=== PATIENT | female | born 2000 | race Caucasian/White ===

== ENCOUNTER 2022-02-25 13:08 | Outpatient (CLI) | payer BC, SELFPAY ==
--- NOTE | ~2022-02-25 | US_ITS ---
EXAMINATION: US pelvic complete w TV DATE: 02/25/2022 14:22 INDICATION: Amenorrhea. Comparison:No prior studies for comparison. TECHNIQUE: Multiple transabdominal and endovaginal sonographic images of the pelvis performed. FINDINGS: The uterus measures 6.7 x 5 x 3.5 cm. The endometrial complex measures 12 mm. The right ovary measures 3.3 x 2.1 x 2.5 cm and the left ovary measures 2.2 x 1.8 x 2.4 cm. There ar e small follicles in each ovary. Normal doppler signal in both ovaries. There is no free fluid in the pelvis. There are no abnormal masses seen on either side. IMPRESSION: 1. Mild endometrial thickening measuring 12 mm. Reviewed, dictated and finalized at location A.
== END 2022-02-25 13:09 | disposition home or self-care (01) ==
PROVIDERS: PCP Family Medicine; Visit Provider Student in an Organized Health Care Education/Training Program
DX: N91.2 Amenorrhea, unspecified (principal); R93.89 Abnormal findings on diagnostic imaging of other specified body structures
CPT/HCPCS: 76830; 76856

== ENCOUNTER 2025-05-09 16:39 | Emergency (ER) | payer SELFPAY ==
--- OUTSIDE RECORDS SUMMARY | 2025-05-09 16:56 | XMS_ITS | Clinical Summary ---
Author Organization [facility] Medical Office Building [address] Address [address] [place] [address] Care Team Providers Care Wool Shearer Name Role Phone Vangie Rai MD Unavailable [phone] Nicolás Tobias MD Unavailable [phone] Shade Patel MD Unavailable [phone] Yinka Walters MD Primary Care Provider [phone] Allergies No known active allergies Medications norethindrone-e.es tradioL-iron 1 mg-20 mcg (24)/75 mg (4) capsule Take 1 tablet by mouth daily Active ondansetron ODT (ZOFRAN-ODT) 4 mg disintegrating tabletIndications: Nausea and Vomiting Take 1 tablet (4 mg total) by mouth every 8 (eight) hours as needed for nausea or vomiting 30 tablet 06/03/20 19 Active Additional Information Patient not taking.Reported on 11/11/2024 acetaminophen (TYLENOL) 325 mg tabletIndications: Pain Take 2 tablets (650 mg total) by mouth every 4 (four) hours as needed for pain 12/29/19 21 Active Additional Information Patient not taking.Reported on 11/11/2024 metoclopramide (REGLAN) 10 mg tablet Take 1 tablet (10 mg total) by mouth 4 (four) times a day as needed (nausea) 30 tablet 3 12/29/19 21 Active Additional Information Patient not taking.Reported on 05/05/2023 escitalopram (LEXAPRO) 10 mg tablet Take 1 tablet (10 mg total) by mouth daily 12/31/19 21 Active levonorgestrel & ethinyl estradiol (AMETHIA) 0.15 mg-30 mcg tablets,dose pack,3 month Take by mouth 03/12/20 20 Active Vyvanse 30 mg capsule Take 1 capsule (30 mg total) by mouth daily Active Active Problems Problem Noted Date Diagnosed Date Intractable nausea and vomiting 12/27/2020 Assessment & Plan (12/28/2020 1:43 PM CDT): Likely manifestation of patient's known cyclic vomiting syndrome. Continues to use daily MJ. Also, alcohol seems to be trigger and drank heavily 3 days prior. Work-up unremarkable in ED, CT and labs basically normal except for AGMA, which has resolved after IVF. Recommended MJ cessation, reduce alcohol use. 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 N/V improved today, d/c home with reglan Assessment & Plan (12/27/2020 3:21 PM CDT): Likely manifestation of patient's known cyclic vomiting syndrome. Continues to use daily MJ. Also, alcohol seems to be trigger and drank heavily 3 days prior. Work-up unremarkable in ED, CT and labs basically normal except for AGMA. Recommended MJ cessation, reduce alcohol use. 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 Anxiety 12/27/2020 Assessment & Plan (12/28/2020 1:43 PM CDT): Advise f/u with PCP to discuss alternative anxiety treatment besides MJ. Perhaps something like a TCA or SNRI may have beneficial effects on her cyclic vomiting as well. Assessment & Plan (12/27/2020 3:22 PM CDT): Advise f/u with PCP to discuss alternative anxiety treatment besides MJ. Perhaps something like a TCA or SNRI may have beneficial effects on her cyclic vomiting as well. Nausea and vomiting 06/01/2019 Assessment & Plan (06/01/2019 8:53 PM CDT): Patient's 4th episode. In the past it has been attributed to marijuana use daily however patient states she has stopped using daily since she returned from [facility] last month. She states she has only used a few times. Patient was also intoxicated and had over half a bottle of vodka last night. Currently feeling better after receiving Compazine. Continue with supportive care. P.r.n. Antiemetics. IV fluids. Mom is concerned that it may be related to her menstrual period as patient was on her menstrual period for each episode. Mom and patient advised that if patient symptoms are attributed to her menstrual period that she can take her OCP continually without taking sugar pills so she no longer has a menstrual period and patient was advised to discuss this with her physician that prescribes her the OCPs. Cannabis use, unspecified wi th other cannabis-induced disorder 06/01/2019 Assessment & Plan (12/28/2020 1:43 PM CDT): Uses daily MJ to self-medicate for anxiety. Advised cessation. Assessment & Plan (12/27/2020 3:21 PM CDT): Uses daily MJ to self-medicate for anxiety. Advised cessation. Assessment & Plan (06/01/2019 8:49 PM CDT): Patient states she no longer uses daily and has used only few times since she returned from [facility] last month. Patient advised to avoid completely to see if her symptoms resolve completely. She denies vaping. Alcoholic intoxication with complication 019 Assessment & Plan (06/01/2019 8:53 PM CDT): Patient states she drinks a few times a month. Last evening she had over half a bottle of vodka. Lactic acidosis 06/01/2019 Assessment & Plan (06/01/2019 8:54 PM CDT): Likely due to nausea and vomiting. Lactate is persistently elevated. Patient has received almost 3 L of IV fluids and urinated. Will repeat level. 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 Alcohol abuse Immunizations Immunization Administration Dates Next Due DTaP 04/22/2004,03/29/2000,04/08/1999 DTaP / HiB 02/02/1999,1998 HPV, Unspecified 05/06/2010,06/10/2009, 8 Hep B, Adolescent or Pediatric 07/29/1999,1998,1998 HiB 12/28/1999,04/08/1999 IPV 04/22/2004, 0,02/02/1999,11/25 Influenza LAIV (Nasal) 05/04/2012,05/06/2011,03/2010 Influenza, Quadrivalent, Spl it, Preservative Free, Intramuscular 05/06/2020,06/03/2019 MMR 04/22/2004,12/28/1999 Meningococcal Conjugate (Menveo) 05/02/2015 Meningococcal Polysaccharide (Menomune) 05/06/2010 PPD TEST, UNSPECIFIED 05/13/2020,05/06/2020 Tdap 05/06/2020,06/10/2009 Varicella 05/23/2008,10/28/1999 Medical History Medical History Date Comments Hyperemesis Cyclic vomiting syndrome Family History Medical History Relation Name Comments Ulcerative colitis Mother Relation Name Status Comments Mother Social History Tobacco Use Types Packs/Day Years Used Date Smoking Tobacco: Never Smokeless Tobacco: Never Alcohol Use Standard Drinks/Week Comments Yes 0 (1 standard drink = 0.6 oz pur e alcohol) Occasionally Comments No Sex and Gender Information Value Date Recorded Sex Assigned at Not on file Legal Sex Female 11:11 AM OFFICE NURSE PRACTITIONER Gender Identity Not on file Sexual Orientation Not on file Obstetrics History Last Filed Vital Signs Vital Sign Reading Time Taken Comments Blood Pressure 108/68 11/11/2024 11:25 AM CDT Pulse 115 11/11/2024 11:25 AM CDT Temperature 36.8 C (98.2 F) 11/11/2024 11:25 AM CDT Respiratory Rate 20 04/19/2024 6:32 PM CDT Oxygen Saturation 98% 11/11/2024 11:25 AM CDT Inhaled Oxygen Concentration - - Weight 86.2 kg (190 lb) 11/11/2024 11:25 AM CDT Height 162.6 cm (5' 4) 11/11/2024 11:25 AM CDT Body Mass Index 32.61 11/11/2024 11:25 AM CDT Plan of Treatment Health Maintenance Due Date Last Done Comments Cervical Cancer Screening 1998 Depression Screening 1998 Hepatitis C Screening 1998 Regular Well Visit/Exam 18-64 2016 Influenza Vaccine (#1) 2025 , 06/03/2019, 05/04/2012, Additional history exists DTaP/Tdap/Td Vaccine (8 - Td or Tdap) 05/06/2030 05/06/2020, 06/10/2009, 04/22/2004, Additional history exists Hepatitis B Screening Completed 07/29/1999 , 1998, 1998 Varicella Vaccines Completed 05/23/2008, 10/28/1999 HPV Vaccines Completed 05/06/2010, 05/29, 05/23/2008 Pneumococcal vaccine <65 Aged Out No longer eligible based on patient's age to complete this topic Insurance [facility] ACCESS CHOICE Advance Directives For more information, please contact: [phone] * Full Code (Latest Code Status on File) Date Activated Date Inactivated Comments 12/27/2020 3:26 PM 12/28/2020 7:12 PM * Full Code Date Activated Date Inactivated Comments 06/01/2019 4:35 PM 06/03/2019 9:50 PM Care Teams Wool Shearer Relationship Specialty Start Date End Date Yinka Walters MD [address] [address] PCP - General 12/27/20 Vangie Rai MD Consulting Physician Gastroenterology 06/03/19 Nicolás Tobias MD Consulting Physician Urology 06/03/19 Shade Patel MD Consulting Physician Obstetrics and Gynecology 06/03/19
--- OUTSIDE RECORDS SUMMARY | 2025-05-09 16:56 | XMS_ITS | Patient Health Record ---
Author Organization [facility] Address [address] [facility] [address] [place] [address] Care Team Providers Care [employer] Superintendent Name Role Phone Alfonzo Angulo Primary Care Provider Unavailabl e Reason For Referral No Information Medications Medication SIG (Take, Route, Fr equency, Duration) Notes Start Date End Date Status Ondansetron HCl 4 MG 1 tablet Orally Onc e a day for 30 day(s) 10/10/2019 Active BCP Active Social History Tobacco Use: Social History Observation Description Date Details (start date - stop date) Never Smoker NA - NA Tobacco Use/Smoking Question Answer Notes Are you a nonsmoker Problems Problem Type SNOMED Code ICD Code Onset Dates Problem Status W/U Status Risk Notes Problem [id number] Cannabinoid hyperemesis syndrome (F12.988) Active confirmed Plan Of Treatment No Information Insurance Providers Payer Name Payer Address Payer Phone Subscriber Number Group Number Insured Name Patient Relationship to Insured Coverage Start Date Coverage End Date Blue Access Choice PPO E2 [address] [place] [address] [id number] Norberto Lara Child - Insured has Financial Responsibility Medical (General) History Surgical History Surgery Date(Month/Year) Hospitalization History Reason Date(Month/Year) Cyclical vomiting x2
--- OUTSIDE RECORDS SUMMARY | 2025-05-09 16:56 | XMS_ITS | Encounter Summary ---
Author Organization [facility] Address [address] [place] [place] [address] Phone Care Team Providers Care Sand Filler Name Role Phone Yinka Walters MD Primary Care Provider [phone] Shade Patel MD Unavailable [phone] Reason for Visit * Reason Comments Medication Refill Encounter Details Date Type Department Care Team (Late st Contact Info) Description 06/06/2023 Refill [facility] - Family Medicine [facility] [address] [place] [address] Yinka Walters MD [address] [place] [address] Medication Refill Social History Tobacco Use Types Packs/Day Years Used Date Smoking Tobacco: Never Smokeless Tobacco: Never Alcohol Use Standard Drinks/Week Comments Not Currently 0 (1 standard drink = 0.6 oz pur e alcohol) PHQ-2 Answer Date Recorded Total Score - Questions 1-9 11 11/2020 Sexually Active Control Partners Comments Not Currently Comments No Sex and Gender Information Value Date Recorded Sex Assigned at Not on file Legal Sex Female 9:04 AM CDT Gender Identity Not on file Sexual Orientation Not on file documented as of this encounter Miscellaneous Notes * Telephone Encounter - Lillie Craig RN - 06/08/2023 7:11 AM CDT Signed Yesterday (06/07/2023): escitalopram (LEXAPRO) 10 MG Tablet Sig: Take 1 Tablet by mouth daily. Disp: 90 Tablet ? Refills: 1 Signed by: Yinka Walters MD * Telephone Encounter - Lillie Craig RN - 06/07/2023 9:23 AM CDT duplicate documented in this encounter Plan of Treatment Not on file documented as of this encounter Visit Diagnoses Not on filedocumented in this encounter Additional Health Concerns Assessment Noted Time PHQ-9 Depression Total Score: 11 021 11:00 AM CDT documented as of this encounter Care Teams Sand Filler Relationship Specialty Start Date End Date Yinka Walters MD PCP - General Family Medicine 06/21/19 05/01/25 Shade Patel MD Consulting Physician Obstetrics & Gynecology 01/03/23 documented as of this encounter
--- OUTSIDE RECORDS SUMMARY | 2025-05-09 16:56 | XMS_ITS | Clinical Summary ---
Author Organization [facility] Address [address] [place] [address] Phone Care Team Providers Care Stereotype Caster Name Role Phone Shade Patel MD Unavailable Allergies No known active allergies Medications escitalopram (LEXAPRO) 10 MG Tablet Take 1 Tablet by mouth daily. 30 Tablet 2 4 Active Lisdexamfetamine Dimesylate (Vyvanse) 30 MG CapsuleIndications :Attention deficit hyperactivity disorder (ADHD), combined type Take 1 Capsule by mouth daily. 30 Capsule 4 Active Active Problems Problem Noted Date Diagnosed Date Anxiety 12/27/2020 Overview (12/30/2020): Last Assessment & Plan: Advise f/u with PCP to discuss alternative anxiety treatment besides MJ. Perhaps something like a TCA or SNRI may have beneficial effects on her cyclic vomiting as well. Allergic rhinitis 09/21/2018 Overview (12/30/2020): Last Assessment & Plan: Blood testing for allergies - will call results Immunizations Immunization Administration Dates Next Due DTAP VACCINE 04/22/2004,03/29/2000,04/08/1999 DTAP/HIB COMBINED VACCINE 02/02/1999,1998 Hepatitis B Vaccine, Pediatric/adolescent 07/29/1999,1998,1998 Hib Vaccine,unspecified Formulation 12/28/1999,0 04/08/1999 Hpv, Unspecified Formulation 05/06/2010,06/10/20 09,05/23/2008 Inactivated Polio Vaccine 04/22/2004,08/1999,02/02/1999,11/25 Influenza Vaccine Nasal 05/04/2012,05/06/2011, Influenza Vaccine, Quadrivalent, PF 05/06/2020,1 MMR Vaccine 04/22/2004,12/28/1999 Meningococcal MCV4O 05/02/2015 Meningococcal Polysaccharide Vaccine (MPSV4) 05/06/2010 TB Skin Test 05/13/2020,05/06/2020 TDAP Vaccine 05/06/2020,06/10/2009 Varicella Vaccine Live 05/23/2008,10/28/1999 Family History Medical History Relation Name Comments Diabetes Father Cancer Maternal Grandmother Natalio Nadeem joshi and later on, tongue/throat cancer Crohn's Disease Mother Cielo Diabetes Mother Cielo Heart Attack Mother Cielo She has had 3 h eart attacks Heart Attack Paternal Grandfather Prasanna I think he has just had 1 heartattack, he had a 99% blockage in an artery Cancer Paternal Grandmother Nazanin Stage 1 breast cancer Congestive Heart Failure Paternal Grandmother Nazanin Great grandmother had congestive heart failure, her name was Grace Relation Name Status Comments Father Alive Maternal Grandmother Natalio Mother Cielo Alive Paternal Grandfather Prasanna Paternal Grandmother Nazanin Social History Tobacco Use Types Packs/Day Years Used Date Smoking Tobacco: Never Smokeless Tobacco: Never Tobacco Cessation:Counseling Given: Yes Alcohol Use Standard Drinks/Week Comments Not Currently 0 (1 standard drink = 0.6 oz pur e alcohol) [facility] Utilities Answer Date Recorded In the past 12 months has e OTC [employer] Group, gas, oil, or water company threatened to shut off services in your home? No 05/03/2024 Social Connection and Isolation Panel Answer Date Recorded In a typical week, how many times do you talk on the phone with family, friends, or neighbors? More than three times a week 05/03/2024 How often do you get togethe r with friends or relatives? Twice a week 05/03/2024 How often do you attend chur ch or restoration services? Never 05/03/2024 Do you belong to any clubs o r organizations such as christian groups, unions, fraternal or athletic groups, or school groups? No 05/03/2024 How often do you attend meet ings of the clubs or organizations you belong to? Never 05/03/2024 Are you , , di vorced, , never , or living with a partner? Living with partner 05/03/2024 AUDIT-C Answer Date Recorded Q1: How often do you have a drink containing alc ohol? 2-4 times a month 05/03/2024 Q2: How many drinks containi ng alcohol do you have on a typical day when you are drinking? 3 or 4 05/03/2024 Q3: How often do you have si x or more drinks on one occasion? Less than monthly 05/03/2024 Overall Financial Resource Strain (CARDIA) Answe r Date Recorded How hard is it for you to pa y for the very basics like food, housing, medical care, and heating? Hard 05/03/2024 PHQ-2 Answer Date Recorded Total Score - Questions 1-9 0 12/2023 [facility] - Occupational Stress Questionnaire Answer Date Recorded Do you feel stress - tense, restless, nervous, or anxious, or unable to sleep at night because your mind is troubled all the time - these days? To some extent 05/03/2024 Exercise Vital Sign Answer Date Recorde d On average, how many days pe r week do you engage in moderate to strenuous exercise (like a brisk walk)? 2 days 05/03/2024 On average, how many minutes do you engage in exercise at this level? 30 min 05/03/2024 Hunger Vital Sign Answer Date Recorded Within the past 12 months, y ou worried that your food would run out before you got the money to buy more. Sometimes true Within the past 12 months, t he food you bought just didn't last and you didn't have money to get more. Never true 12/2023 PRAPARE - Transportation Answer Date Re corded In the past 12 months, has l ack of transportation kept you from medical appointments or from getting medications? No 12/2023 In the past 12 months, has l ack of transportation kept you from meetings, work, or from getting things needed for daily living? No 05/03/2024 Housing Stability Vital Sign Answer Dequan e Recorded In the last 12 months, was t here a time when you were not able to pay the mortgage or rent on time? Yes 05/03/2024 In the past 12 months, how m any times have you moved where you were living? 0 05/03/2024 At any time in the past 12 m [facility], were you homeless or living in a custodial (including now)? No 05/03/2024 Sexually Active Control Partners Comments Yes Male We have been tr carlos to have a baby for almost 3 years Comments No Sex and Gender Information Value Date Recorded Sex Assigned at Not on file Legal Sex Female 9:04 AM CDT Gender Identity Not on file Sexual Orientation Not on file Last Filed Vital Signs Vital Sign Reading Time Taken Comments Blood Pressure 120/64 03/08/2023 6:27 PM CDT Pulse 123 05/03/2024 2:44 PM CDT Temperature 36.6 C (97.9 F) 03/08/2023 6:27 PM CDT Respiratory Rate 12 05/03/2024 2:44 PM CDT Oxygen Saturation 99% 05/03/2024 2:44 PM CDT Inhaled Oxygen Concentration - - Weight 88.8 kg (195 lb 11.2 oz) 05/03/2024 2:44 PM CDT Height 162.6 cm (5' 4) 05/03/2024 2:44 PM CDT Body Mass Index 33.59 05/03/2024 2:44 PM CDT Plan of Treatment Health Maintenance Due Date Last Done Comments Hepatitis C Virus (HCV) Screening 1998 Pap Smear 2019 Influenza Immunization (#1) 04/29/202503/2020, 06/03/2019, 05/04/2012, Additional history exists SARS-COV-2 Immunization ( season) 2025 06/30/2021, 06/02/2021 DTaP/Tdap/Td Immunization (8 - Td or Tdap) 05/06/2030 05/06/2020, 06/10/2009, 04/22/2004, Additional history exists Td Immunization Every 10 Years (Adults With 1 Tdap) 05/06/2030 05/06/2020, 06/10/2009 Respiratory Syncytial Virus (RSV) Immunization (Adult) (1 - 1-dose 75+ series) 2073 Hepatitis B Immunization Completed 999, 1998, 1998 Human Papillomavirus (HPV) Immunization Completed 05/06/2010, 06/10/2009, 05/23/2008 Meningococcal Immunization (ACWY) Completed 05/02/2015, 05/06/2010 Pneumococcal Immunization Combined Aged Out No longer eligible based on patient's age to complete this topic Rotavirus Immunization Aged Out No lo nger eligible based on patient's age to complete this topic Insurance [facility] Care Teams Stereotype Caster Relationship Specialty Start Date End Date Shade Patel MD Consulting Physician Obstetrics & Gynecology 01/03/23
[2025-05-09 17:17] VITALS: BP 126/98; PULSE 61; RESP 16; TEMP 37.2; O2SAT 100
--- NOTE | 2025-05-09 17:22 | ED_ITS ---
HPI - Nausea/Vomiting/Diarrhea General Chief complaint: Nausea/Vomiting/Diarrhea <Trini Hernandez APRN - Last Filed: 05/09/25 17:33> Stated complaint: cyclic vomiting <Trini Hernandez APRN - Last Filed: 05/09/25 17:33> Time Seen by Provider: 05/09/25 17:22 <Trini Hernandez APRN - Last Filed: 05/09/25 17:33> Focused HPI: Patient is a 24-year-old female who presents to the ER with nausea, vomiting, and abdominal pain. She reports her symptoms started approximately 23 hours ago. Patient reports she has a history of cyclic vomiting syndrome. She reports her symptoms usually only last approximately 24 hours, but they are not subsiding this time. Patient reports in the past she has been treated with Droperidol, which has been helpful. She denies any urinary symptoms, back pain, or headaches. Patient denies any other medical history relevant to this ER visit. GENERAL: Well-appearing, well-nourished, and in no acute distress. HEAD: Normocephalic, atraumatic. CHEST: Clear to auscultation. ?No respiratory distress. HEART: Regular rate and rhythm.? NEURO: ?Alert and oriented x3. Patient screened in triage and initial orders placed.? ?Additional care and disposition to be based upon?diagnostic testing and treatment. <Trini Hernandez APRN - Last Filed: 05/09/25 17:33> History of Present Illness HPI Narrative: As per HPI <Noah Davenport MD - Last Filed: 05/09/25 21:47> Related Data Allergies/Adverse reactions: Allergies Allergy/AdvReac Type Severity Reaction Status Date / Time No Known Allergies Allergy Verified 05/09/25 17:22 <Trini Hernandez APRN - Last Filed: 05/09/25 17:33> Review of Systems 2 Review of Systems: Gen.: Denies fevers or chills Eyes: Denies eye pain or visual change ENT: Denies congestion Respiratory: Denies shortness of breath or cough CV: Denies chest pain or palpitations GI: As per HPI denies burning, urgency, frequency or hematuria Musculoskeletal: Denies back pain or muscle pain Neuro: Denies numbness, tingling, weakness or focal weakness Skin: Denies rash Except as documented, all other systems reviewed and negative <Noah Davenport MD - Last Filed: 05/09/25 21:47> Exam 2 Narrative: APPEARANCE: No acute distress, nontoxic, resting in bed EYES: EOMI HEENT: Normocephalic, atraumatic, mucous membranes dry RESPIRATORY: No respiratory distress Clear to auscultation bilaterally with no rhonchi wheezing or rales. CARDIOVASCULAR: Regular rate and rhythm without murmurs rubs or gallops. ABDOMINAL: Soft, nontender, nondistended, no rebound or guarding MUSCULOSKELETAl: Moves all extremities. No clubbing, cyanosis or edema. NEURO: Awake and alert. Following commands, speech normal, no focal deficits SKIN:: Warm, dry. No rashes lesions or abrasions PSYCHIATRIC: Normal affect/mood, <Noah Davenport MD - Last Filed: 05/09/25 21:47> Course Vital Signs Vital signs: Vital Signs Temperature 99 F 05/09/25 17:17 Pulse Rate 61 05/09/25 17:17 Respiratory Rate 16 05/09/25 17:17 Blood Pressure 126/98 H 05/09/25 17:17 Pulse Oximetry 100 05/09/25 17:17 Oxygen Delivery Room Air 05/09/25 17:17 Temperature 98.0 F 05/09/25 20:14 Pulse Rate 57 L 05/09/25 20:14 Respiratory Rate 16 05/09/25 20:14 Blood Pressure 108/60 05/09/25 20:14 Pulse Oximetry 96 05/09/25 20:14 Oxygen Delivery Room Air 05/09/25 20:14 <Trini Hernandez, WIRE SPOOLER - Last Filed: 05/09/25 17:33> Vital Signs Temperature 99 F 05/09/25 17:17 Pulse Rate 61 05/09/25 17:17 Respiratory Rate 16 05/09/25 17:17 Blood Pressure 126/98 H 05/09/25 17:17 Pulse Oximetry 100 05/09/25 17:17 Oxygen Delivery Room Air 05/09/25 17:17 Temperature 98.0 F 05/09/25 20:14 Pulse Rate 57 L 05/09/25 20:14 Respiratory Rate 16 05/09/25 20:14 Blood Pressure 108/60 05/09/25 20:14 Pulse Oximetry 96 05/09/25 20:14 Oxygen Delivery Room Air 05/09/25 20:14 <Noah Davenport MD - Last Filed: 05/09/25 21:47> MDM - Nausea/Vomiting/Diarrhea MDM Narrative Medical decision making narrative: 24-year-old female who presents to the ED for nausea vomiting. On initial evaluation, patient was in no acute distress afebrile, hemodynamically stable. Abdomen is soft nontender. She did have some dry mucous membranes. This was similar to her prior episodes of cyclic vomiting syndrome but this is her 1st time being seen here for this. Last episode was at least 5 years ago. CBC did reveal a leukocytosis at 14.6. CMP showed evidence of for significant dehydration. Patient is otherwise well-appearing at this time. She was given a 30 cc/kg bolus of normal saline. She was not vomiting throughout the majority of her ED course but she did begin to develop nausea and vomiting just prior to discharge. She was given Zofran and subsequently Haldol. She was able to tolerate water. She will be discharged home with her mother who can monitor her. Patient and Mother were agreeable to this plan. Given strict return precautions. <Noah Davenport MD - Last Filed: 05/09/25 21:47> Differential Diagnosis Differential diagnosis: Likely food poisoning, gastroenteritis, drug-induced nausea and vomiting and dehydration <Noah Davenport MD - Last Filed: 05/09/25 21:47> Medical Records Attestation: I reviewed the patient's medical records. <Noah Davenport MD - Last Filed: 05/09/25 21:47> Lab Data Attestation: I reviewed the patient's lab results. <Noah Davenport MD - Last Filed: 05/09/25 21:47> Result diagrams: 05/09/25 18:03 05/09/25 18:03 <Trini Hernandez APRN - Last Filed: 05/09/25 17:33> Labs: Lab Results 05/09/25 05/09/25 Range/Units 18:03 18:14 WBC 14.6 H (4.5-10.0) K/mm3 RBC 5.07 (4.2-5.4) M/mm3 Hgb 15.1 H (12.0-15.0) g/dL Hct 43.2 (37.0-47.0) % MCV 85.2 (80-100) fl MCH 29.8 (26-34) pg MCHC 35.0 (32-36) g/dl RDW 13.2 (11.5-14.5) % Plt Count 454 H (150-375) k/mm3 MPV 8.7 (7.4-10.4) fl Immature Gran % (Auto) 0.5 (0-0.5) % Neut % (Auto) 76.1 H (45.5-73.1) % Lymph % (Auto) 17.9 L (18.3-44.2) % [place] % (Auto) 5.4 (2.6-8.5) % Eos % (Auto) 0.0 (0-4.4) % Baso % (Auto) 0.1 L (0.2-1.2) % Lymph # (Auto) 2.62 (0.9-3.2) K/mm3 [place] # (Auto) 0.8 H (0.1-0.6) K/mm3 Eos # (Auto) 0.0 (0-0.3) K/mm3 Baso # (Auto) 0.0 (0.0-0.1) K/mm3 Abs Immat Gran (auto) 0.07 H (0.00-0.031) K/mm3 Absolute Neuts (auto) 11.1 H (1.3-6.7) K/mm3 Absolute Nucleated RBC 0.000 (0.0-0.012) K/mm3 Nucleated RBC % 0.0 (0.0-0.2) % Sodium 139 (137-145) mmol/L Potassium 4.0 (3.4-5.0) mmol/L Chloride 104 (98-107) mmol/L Carbon Dioxide 16 L (22-30) mmol/L Anion Gap 19 H (4-12) mmol/L BUN 16 (7-17) mg/dL Creatinine 1.11 H (0.7-1.0) mg/dL Estim Creat Clear Calc 67 ml/min Estimated GFR 59 (59 - ) Glucose 146 H (65-110) mg/dL Calcium 10.2 (8.4-10.2) mg/dL Total Bilirubin 1.8 H (0.2-1.3) mg/dL AST 32 (14-36) U/L ALT 37 H (6-35) U/L Alkaline Phosphatase 71 (38-126) U/L Total Protein 9.2 H (6.3-8.2) g/dL Albumin 5.3 H (3.5-5.1) g/dL Lipase 64 (23-300) U/L Urine Color [place] H (Yellow) Urine Appearance Cloudy H (Clear) Urine pH 5.5 (5.0-9.0) Ur Specific [place] 1.038 H (1.001-1.035) Urine Protein 2+ H (Negative) mg/dL Urine Glucose (UA) Negative (Negative) mg/dL Urine Ketones 4+ H (Negative) mg/dL Ur Blood (Man) 3+ H (Negative) Urine Nitrate Negative (Negative) Urine Bilirubin 1+ H (Negative) Urine Urobilinogen 1.0 (<2.0) mg/dL Add Ur Microanalysis Reviewed Leukocyte Esterase Rfl 1+ H (Negative) MALA/UL Urine RBC >100 H (0-2) /hpf Urine WBC 6-10 H (0-3) /hpf Ur Squamous Epith Cells Occasional (Few) /hpf Urine Bacteria Rare /hpf Urine Casts 3-5 Urine Mucus Present /lpf <Trini Henrandez, WIRE SPOOLER - Last Filed: 05/09/25 17:33> Lab Results 05/09/25 05/09/25 Range/Units 18:03 18:14 WBC 14.6 H (4.5-10.0) K/mm3 RBC 5.07 (4.2-5.4) M/mm3 Hgb 15.1 H (12.0-15.0) g/dL Hct 43.2 (37.0-47.0) % MCV 85.2 (80-100) fl MCH 29.8 (26-34) pg MCHC 35.0 (32-36) g/dl RDW 13.2 (11.5-14.5) % Plt Count 454 H (150-375) k/mm3 MPV 8.7 (7.4-10.4) fl Immature Gran % (Auto) 0.5 (0-0.5) % Neut % (Auto) 76.1 H (45.5-73.1) % Lymph % (Auto) 17.9 L (18.3-44.2) % [place] % (Auto) 5.4 (2.6-8.5) % Eos % (Auto) 0.0 (0-4.4) % Baso % (Auto) 0.1 L (0.2-1.2) % Lymph # (Auto) 2.62 (0.9-3.2) K/mm3 [place] # (Auto) 0.8 H (0.1-0.6) K/mm3 Eos # (Auto) 0.0 (0-0.3) K/mm3 Baso # (Auto) 0.0 (0.0-0.1) K/mm3 Abs Immat Gran (auto) 0.07 H (0.00-0.031) K/mm3 Absolute Neuts (auto) 11.1 H (1.3-6.7) K/mm3 Absolute Nucleated RBC 0.000 (0.0-0.012) K/mm3 Nucleated RBC % 0.0 (0.0-0.2) % Sodium 139 (137-145) mmol/L Potassium 4.0 (3.4-5.0) mmol/L Chloride 104 (98-107) mmol/L Carbon Dioxide 16 L (22-30) mmol/L Anion Gap 19 H (4-12) mmol/L BUN 16 (7-17) mg/dL Creatinine 1.11 H (0.7-1.0) mg/dL Estim Creat Clear Calc 67 ml/min Estimated GFR 59 (59 - ) Glucose 146 H (65-110) mg/dL Calcium 10.2 (8.4-10.2) mg/dL Total Bilirubin 1.8 H (0.2-1.3) mg/dL AST 32 (14-36) U/L ALT 37 H (6-35) U/L Alkaline Phosphatase 71 (38-126) U/L Total Protein 9.2 H (6.3-8.2) g/dL Albumin 5.3 H (3.5-5.1) g/dL Lipase 64 (23-300) U/L Urine Color [place] H (Yellow) Urine Appearance Cloudy H (Clear) Urine pH 5.5 (5.0-9.0) Ur Specific [place] 1.038 H (1.001-1.035) Urine Protein 2+ H (Negative) mg/dL Urine Glucose (UA) Negative (Negative) mg/dL Urine Ketones 4+ H (Negative) mg/dL Ur Blood (Man) 3+ H (Negative) Urine Nitrate Negative (Negative) Urine Bilirubin 1+ H (Negative) Urine Urobilinogen 1.0 (<2.0) mg/dL Add Ur Microanalysis Reviewed Leukocyte Esterase Rfl 1+ H (Negative) MALA/UL Urine RBC >100 H (0-2) /hpf Urine WBC 6-10 H (0-3) /hpf Ur Squamous Epith Cells Occasional (Few) /hpf Urine Bacteria Rare /hpf Urine Casts 3-5 Urine Mucus Present /lpf <Noah Davenport MD - Last Filed: 05/09/25 21:47> Discharge Plan Discharge Clinical Impression: Cyclic vomiting syndrome, Acute dehydration <VINCE Painter Last Filed: 05/09/25 17:33> Patient Disposition: Home <Trini Hernandez APRN - Last Filed: 05/09/25 17:33> Condition: Stable <Trini Hernandez APRN - Last Filed: 05/09/25 17:33> Instructions: Antibiotic Form, Capsaicin (On the skin), Cyclic Vomiting Syndrome (ED) <Trini Hernandez APRN - Last Filed: 05/09/25 17:33> Additional Instructions: Apply capsaicin to the chest abdomen and cover it. Try a bland diet and drink plenty of water. Return to the ED for any new or worsening symptoms. <Trini Hernandez APRN - Last Filed: 05/09/25 17:33> Patient Language: Malian <VINCE Painter Last Filed: 05/09/25 17:33> Prescriptions: New ondansetron 4 mg tablet,disintegrating 4 mg PO Q8H PRN (Reason: nausea and vomiting) Qty: 14 0RF <VINCE Painter Last Filed: 05/09/25 17:33> Follow-up/Referrals: PHYSICIAN,[employer] SAL[employer] [Primary Care Provider, Internal Medicine] <Trini Hernandez APRN - Last Filed: 05/09/25 17:33>
[2025-05-09 18:08] LABS: Hematocrit 43.2 % (37.0-47.0); Hemoglobin 15.1 g/dL (12.0-15.0); Immature Granulocyte Percent A 0.5 % (0-0.5); Lymphocytes Absolute Auto 2.62 K/mm3 (0.9-3.2); Mean Corpuscular HGB Conc 35.0 g/dl (32-36); Mean Corpuscular Hemoglobin 29.8 pg (26-34); Mean Corpuscular Volume 85.2 fl (80-100); Nucleated Red Blood Cells Absolute Auto 0.000 K/mm3 (0.0-0.012); Nucleated Red Blood Cells Perc 0.0 % (0.0-0.2); Platelet Count Result 454 k/mm3 (150-375); Red Blood Count 5.07 M/mm3 (4.2-5.4); White Blood Count 14.6 K/mm3 (4.5-10.0)
[2025-05-09 18:29] LABS: Alanine Aminotransferase 37 U/L (6-35); Albumin Level 5.3 g/dL (3.5-5.1); Alkaline Phosphatase 71 U/L (38-126); Anion Gap 19 mmol/L (4-12); Aspartate Amino Transferase 32 U/L (14-36); Bilirubin,Total 1.8 mg/dL (0.2-1.3); Blood Urea Nitrogen 16 mg/dL (7-17); Calcium 10.2 mg/dL (8.4-10.2); Carbon Dioxide 16 mmol/L (22-30); Chloride 104 mmol/L (98-107); Estimated CRCL calculation 67 ml/min; Estimated Glomerular Filt Rate 59; Glucose 146 mg/dL (65-110); Lipase 64 U/L (23-300); Potassium 4.0 mmol/L (3.4-5.0); Sodium 139 mmol/L (137-145); Total Protein 9.2 g/dL (6.3-8.2)
[2025-05-09 19:33] LABS: Add Urine Microscopic? YES; Appearance Urine Cloudy (Clear); Glucose Urine UA Negative (Negative); Leukocyte Esterase Ur 1+ LEU/UL (Negative); Need Manual Microscopic Reviewed; Nitrate Urine Negative (Negative); Specific Grav Ur 1.038 (1.001-1.035)
[2025-05-09 20:14] VITALS: BP 108/60; PULSE 57; RESP 16; TEMP 36.7; O2SAT 96
[2025-05-09] MEDS: SODIUM CHLORIDE 0.9% IV 1,000 ML 999 ML IV CONT ×2 (20:16)
[2025-05-09] MEDS: SODIUM CHLORIDE 0.9% IV 300 ML 999 ML IV CONT (20:16)
--- OUTSIDE RECORDS SUMMARY | 2025-05-09 20:20 | XMS_ITS | Clinical Summary ---
Author Organization [facility] Medical Office Building [address] Address [address] [place] [address] Care Team Providers Care Channel Development Director Name Role Phone Vangie Rai MD Unavailable [phone] Nicolás Tobias MD Unavailable [phone] Shade Patel MD Unavailable [phone] Yinka Walters MD Primary Care Provider [phone] Allergies No known active allergies Medications norethindrone-e.es [...] stopped using daily since she returned from [facility] last month. She states she has [...] only few times since she returned from [facility] last month. Patient advised to avoid [...] 09/21/2018 Assessment & Plan (09/21/2018 5:31 PM THERAPIST ASST): Zantac 300 mg at bedtime LPR discussed and Handout provided Call if no improvement in 3 months Allergic rhinitis 09/21/2018 Assessment & Plan (09/21/2018 5:30 PM THERAPIST ASST): Blood testing for allergies - will call [...] on file Legal Sex Female 11:11 AM THERAPIST ASST Gender Identity Not on file Sexual Orientation [...] patient's age to complete this topic Insurance [facility] ACCESS CHOICE Advance Directives For more information, please contact: [phone] * Full Code (Latest Code Status on File) Date Activated Date Inactivated Comments 12/27/2020 3:26 PM 12/28/2020 7:12 PM * Full Code Date Activated Date Inactivated Comments 06/01/2019 4:35 PM 06/03/2019 9:50 PM Care Teams Channel Development Director Relationship Specialty Start Date End Date Yinka Walters MD [address] [address] PCP - General 12/27/20 Vangie Rai MD Consulting Physician Gastroenterology 06/03/19 Nicolás Tobias MD Consulting Physician Urology 06/03/19 Shade Patel MD Consulting Physician Obstetrics and Gynecology 06/03/19
--- OUTSIDE RECORDS SUMMARY | 2025-05-09 20:20 | XMS_ITS | Encounter Summary ---
Author Organization [facility] Address [address] [place] [place] [address] Phone Care Team Providers Care Hip Hop Dance Instructor Name Role Phone Yinka Walters MD Primary Care Provider [phone] Shade Patel MD Unavailable Reason for Visit * Reason Comments Medication Refill Encounter Details Date Type Department Care Team (Late st Contact Info) Description 06/06/2023 Refill [facility] - Family Medicine [facility] [address] [place] [address] Yinka Walters MD [address] [place] [address] Medication Refill Social History Tobacco [...] documented as of this encounter Care Teams Hip Hop Dance Instructor Relationship Specialty Start Date End Date Yinka Walters MD PCP - General Family Medicine 06/21/19 05/01/25 Shade Patel MD Consulting Physician Obstetrics & Gynecology 01/03/23 documented as of this encounter
--- OUTSIDE RECORDS SUMMARY | 2025-05-09 20:20 | XMS_ITS | Clinical Summary ---
Author Organization [facility] Address [address] [place] [address] Phone Care Team Providers Care Account Management Specialist Name Role Phone Shade Patel MD Unavailable [phone] Allergies No known active allergies Medications escitalopram [...] drink = 0.6 oz pur e alcohol) [facility] Utilities Answer Date Recorded In the past 12 months has e [place], gas, oil, or water company threatened to [...] often do you attend chur ch or jain services? Never 05/03/2024 Do you belong to any clubs o r organizations such as jew groups, unions, fraternal or athletic groups, or [...] Total Score - Questions 1-9 0 12/2023 [facility] - Occupational Stress [...] any time in the past 12 m [facility], were you homeless or living in a jail (including now)? No 05/03/2024 Sexually Active Control [...] patient's age to complete this topic Insurance [facility] Care Teams Account Management Specialist Relationship Specialty Start Date End Date Shade Patel MD Consulting Physician Obstetrics & Gynecology 01/03/23
[2025-05-09] MEDS: ONDANSETRON INJ 4 MG/2 ML VIAL IV PUSH (21:23)
[2025-05-09] MEDS: HALOPERIDOL LACTATE 5 MG/ML VIAL IV PUSH (21:50)
[2025-05-09 22:14] VITALS: BP 100/52; PULSE 89; RESP 16; O2SAT 97
== END 2025-05-09 22:24 | disposition home or self-care (01) ==
PROVIDERS: Emergency Medicine; Emergency Provider Student in an Organized Health Care Education/Training Program
DX: R11.15 Cyclical vomiting syndrome unrelated to migraine (principal); E86.0 Dehydration
CPT/HCPCS: 36415; 80053; 81001; 83690; 85025; 87086; 96361; 96374; 96375; 99284; J1630; J2405; J7030